=== PATIENT | female | born 1975 | race Two or more races ===

== ENCOUNTER 2024-11-12 11:22 | Emergency (ER) | payer MEDICAID, OTHER ==
[~2024-11-12] VITALS: Ht 165.1 cm; Wt 70.8 kg
[2024-11-12] MEDS ORDERED: NAPROXEN 250 MG TABLET ONE (12:39)
[2024-11-12] MEDS: NAPROXEN 250 MG TABLET PO ONE (12:41)
[2024-11-12] MEDS ORDERED: ACET325T53 PO (13:56)
[2024-11-12] MEDS ORDERED: IBUP-1490 PO (13:56)
[2024-11-12 14:41] VITALS: BP 124/78; TEMP 97.9; O2SAT 98
== END 2024-11-12 14:44 | disposition home or self-care (01) ==
LOC: ER 11:22
DX: M25.562 Pain in left knee (principal); M25.462 Effusion, left knee
CPT/HCPCS: 73564-TC